=== PATIENT | male | born 1985 | race Asian ===

== ENCOUNTER 2017-12-15 13:56 | Day surgery (SDC) | payer MEDICAID ==
[~2017-12-15] VITALS: Ht 172.7 cm; Wt 100.0 kg
[~2017-12-15 13:56] MED LIST: DIAZ5TAB PO; IBUP-1986 PO; NO HOME MEDS
[2017-12-15 14:05] VITALS: BP 130/70
[2017-12-15] MEDS ORDERED: MIDAZolam 5mg/5ml vial ONE ×2 (14:48→14:57)
[2017-12-15] MEDS ORDERED: fentaNYL/PF 50MCG/1 ML 2ML syringe ONE ×2 (14:48→14:56)
[2017-12-15 15:05] VITALS: BP 106/42
[2017-12-15 15:15] VITALS: BP 126/75
[2017-12-15 15:25] VITALS: BP 104/63
[2017-12-15 15:35] VITALS: BP 109/85
== END 2017-12-15 15:38 | disposition home or self-care (01) ==
LOC: GI LAB 13:56
PROVIDERS: ATTEND Internal Medicine Gastroenterology
DX: K64.8 Other hemorrhoids (principal); K92.1 Melena; F17.210 Nicotine dependence, cigarettes, uncomplicated; Z72.89 Other problems related to lifestyle; Z90.49 Acquired absence of other specified parts of digestive tract; Z98.890 Other specified postprocedural states
CPT/HCPCS: 45350; 99152; J2250; J3010; J7030; A4620; G0500

== ENCOUNTER 2018-01-10 12:55 | Emergency (ER) | payer MEDICAID ==
[~2018-01-10] VITALS: Ht 172.7 cm; Wt 96.5 kg
[~2018-01-10 12:55] MED LIST changes: -DIAZ5TAB PO; -IBUP-1986 PO
[2018-01-10 13:38] LABS: BASOPHILS % (AUTO) 0.4 % (0-1); EOSINOPHILS # (AUTO) 0.5 X10'3 (0-0.9); EOSINOPHILS % (AUTO) 5.1 % (0-6); HEMATOCRIT 44.5 % (42.0-52.0); HEMOGLOBIN 14.6 g/dl (14.0-17.9); LYMPHOCYTES # (AUTO) 2.8 X10'3 (1.1-4.8); LYMPHOCYTES % (AUTO) 27.5 % (21-51); MEAN CORPUSCULAR HEMOGLOBIN 25.9 PG (27.0-31.0); MEAN CORPUSCULAR HGB CONC 32.9 % (33.0-36.5); MEAN CORPUSCULAR VOLUME 78.6 FL (78-98); MEAN PLATELET VOLUME 7.7 FL (7.4-10.4); MONOCYTES # (AUTO) 0.7 X10'3 (0-0.9); MONOCYTES % (AUTO) 6.5 % (2-12); NEUTROPHILS # (AUTO) 6.1 X10'3 (1.8-7.7); NEUTROPHILS % (AUTO) 60.5 % (42-75); PLATELET COUNT 246 X10'3 (140-440); RED BLOOD COUNT 5.66 X10'6 (4.70-6.10); RED CELL DISTRIBUTION WIDTH 14.8 % (11.5-14.5); WHITE BLOOD COUNT 10.1 X10'3 (4.5-11.0)
[2018-01-10 13:49] LABS: TOTAL CELLS COUNTED 100
[2018-01-10 13:50] LABS: HYPOCHROMASIA 1+; MICROCYTOSIS 1+; PLATELET ESTIMATE NORMAL; POLYCHROMASIA 1+
[2018-01-10 14:22] VITALS: BP 108/57
== END 2018-01-10 14:24 | disposition home or self-care (01) ==
LOC: ER 12:55
DX: K62.5 Hemorrhage of anus and rectum (principal); R42 Dizziness and giddiness; F12.10 Cannabis abuse, uncomplicated; Z90.49 Acquired absence of other specified parts of digestive tract
CPT/HCPCS: 36415; 85025; 99283

== ENCOUNTER 2022-08-23 10:31 | Emergency (ER) | payer OTHER, MEDICAID ==
[~2022-08-23] VITALS: Ht 170.2 cm; Wt 109.0 kg
[2022-08-23 11:20] VITALS: BP 134/89
== END 2022-08-23 13:21 | disposition home or self-care (01) ==
LOC: ER 10:31
DX: R07.89 Other chest pain (principal); F12.10 Cannabis abuse, uncomplicated; Z87.81 Personal history of (healed) traumatic fracture; V98.8XXA Other specified transport accidents, initial encounter; Y93.89 Activity, other specified; Y92.89 Other specified places as the place of occurrence of the external cause; Y99.8 Other external cause status
CPT/HCPCS: 71045; 93005; 99283